=== PATIENT | female | born 1935 | race Caucasian/White ===

== ENCOUNTER 2016-12-18 14:47 | Inpatient (IN) | payer MEDICARE, OTHER ==
[~2016-12-18] VITALS: Ht 165.1 cm; Wt 86.2 kg
[2017-02-05] VITALS (11 sets, daily range): BP systolic 99–151; BP diastolic 48–97; PULSE 58–83; TEMP 98–98.8
[2017-02-06 00:18] VITALS: BP 126/70; PULSE 78; TEMP 98.2
[2017-02-06 03:48] VITALS: BP 130/66; PULSE 74; TEMP 98.2
[2017-02-06 06:50] LABS: HEMATOCRIT 36.4 % (37.0-47.0)
[2017-02-06 07:36] VITALS: BP 131/69; PULSE 71; TEMP 98.4
[2017-02-06 11:22] VITALS: BP 107/67; PULSE 73; TEMP 98.4
[2017-02-06 15:51] VITALS: BP 127/59; PULSE 73; TEMP 98
[2017-02-06 20:26] VITALS: BP 105/63; PULSE 78; TEMP 98.8
[2017-02-07 00:13] VITALS: BP 152/65; PULSE 77; TEMP 98.7
[2017-02-07 04:12] VITALS: BP 125/57; PULSE 76; TEMP 98.5
[2017-02-07 08:17] VITALS: BP 139/58; PULSE 73; TEMP 98
[2017-02-07 08:22] LABS: HEMATOCRIT 36.9 % (37.0-47.0); HEMOGLOBIN 11.9 g/dl (12.5-16.0)
[2017-02-07] MEDS ORDERED: ASPIRIN 32325 MG/TA1 PO (14:13)
[2017-02-07] MEDS ORDERED: NORCO 325 MG-7.1 TAB PO (14:13)
[2017-02-07] MEDS ORDERED: OXY IR5 MG PO (14:15)
== END 2017-02-07 14:40 | disposition home or self-care (01) | DRG 470 ==
LOC: JCC 02-05 06:24
PROVIDERS: Orthopaedic Surgery
PROC: 0SR90JA Replacement of Right Hip Joint with Synthetic Substitute, Uncemented, Open Approach (ICD-10-PCS; principal; 2017-02-05 11:30)
DX: M16.11 Unilateral primary osteoarthritis, right hip (principal)
CPT/HCPCS: A4315; A9284; C1713; C1776; J0690; J1100; J2250; J2370; J2405; J2704; J3010; J7120

== ENCOUNTER → 2017-01-29 | Outpatient (CLI) | payer MEDICARE, OTHER ==
[2017-01-29 16:24] LABS: HIV 1/2 Antibodies Non-Reactive; HIV-1p24 Antigen Non-Reactive
== END ==
LOC: COL.LAB 14:53
PROVIDERS: Orthopaedic Surgery
DX: Z01.812 Encounter for preprocedural laboratory examination (principal)

== ENCOUNTER → 2017-07-10 | Outpatient (CLI) | payer MEDICARE, OTHER ==
[~2017-07-10] MED LIST: ASPIRIN 32325 MG/TA1 PO; NORCO 325 MG-7.1 TAB PO; OXY IR5 MG PO
== END ==
LOC: COL.RAD 12:03
DX: M25.512 Pain in left shoulder (principal)
CPT/HCPCS: J3301; Q9967

== ENCOUNTER 2019-09-16 16:18 | Inpatient (IN) | payer MEDICARE, OTHER ==
[~2019-09-16] VITALS: Ht 162.7 cm; Wt 72.2 kg
[2019-11-08] VITALS (8 sets, daily range): BP systolic 110–128; BP diastolic 55–66; PULSE 56–82; TEMP 97.6–98.3
[2019-11-08] MEDS ORDERED: RT ADVAIR 528 DISKUS IH (09:53)
[2019-11-08] MEDS ORDERED: HYGROTON 2525 MG/TAB PO (09:53)
[2019-11-08] MEDS ORDERED: BENICAR 20MG TA20 MG PO (09:53)
[2019-11-08] MEDS ORDERED: OMEGA-3 FISH1000 MG PO (09:54)
[2019-11-08] MEDS ORDERED: MOBIC15 MG PO (09:54)
[2019-11-08] MEDS ORDERED: CRESTOR5 MG PO (09:55)
[2019-11-08] MEDS ORDERED: NIASPAN750 MG PO (09:55)
[2019-11-08] MEDS ORDERED: FOLIC ACID0.4 MG PO (09:56)
[2019-11-08] MEDS ORDERED: PROLIA60 MG/ML SQ (09:56)
[2019-11-08] MEDS ORDERED: VISION VITAMINS1 TA1 PO (09:57)
--- NOTE | 2019-11-08 15:00 | NUR ---
PATIENT ADMITED INTO ROOM 330 POST OP. ORIENTED BUT SL DROWSY. VSS. DENIES PAIN IN LLE. UNABLE TO MOVE BLE AT THIS TIME. LTK DRESSING IS CD&I WITH BULKY ACEWRAP. TEDS TO RLE. SCD'S TO BLE. POSITIVE PEDAL PULSES TO BLE. PATIENT DENIES NEED TO VOID AT THIS TIME. NO C/O N/V. IV FLUIDS INFUSING VIA PUMP INTO LEFT FORARM IV. LIQUIDS AT BEDSIDE. HEAD TO TOE ASSESSMENT WNL. ORIENTED TO ROOM. CALL LIGHT IN REACH.
[2019-11-09] VITALS (7 sets, daily range): BP systolic 100–123; BP diastolic 43–68; PULSE 60–77; TEMP 97.5–99
--- NOTE | 2019-11-09 01:49 | NUR ---
Patient has rested well throughout the night. SBA required for ambulation to the restroom. Patient utilizes walker and gait is steady. Bulky dressing to left knee is clean, dry, and intact. Patient has had good urine output. States pain is well controlled. IVF infusing through left forearm. Asks questions frequently. All questions answered to patient's satisfaction. Patient states all sensation back in the left leg. Denies any further needs. Will continue to monitor.
[2019-11-09 07:25] LABS: HEMOGLOBIN 11.3 g/dl (12.5-16.0)
--- NOTE | 2019-11-09 09:23 | NUR ---
PT SITTING UP IN BED AFTER EATING BREAKFAST. DR BENITEZ IN TO ROUND ON PATIENT THIS AM. POSSIBLE DISCHARGE LATER TODAY AFTER PM THERAPY. PT AMBULATING WITH SLOW STEADY GAIT. DRESSING TO LEFT KNEE CDI WITH OCCLUSIVE ESTELLA WRAP OVER INCISION. PAIN CONTROLLED WITH PO MEDS AT THIS TIME.
--- NOTE | 2019-11-09 10:10 | NUR ---
SW met with the patient to discuss discharge plan. The patient lives in [place] with her , Ja (ph#[phone]). She reports independence with ADLs and has a cane and walker. The patient's PCP is Dr. Hesham Guevara and she receives her medications through [facility] and [facility] mail order. She reports no difficulties obtaining her meds. The patient does not have advanced directives in EMR, but she reports that she does have them completed. She states that she designated her children: Carly Wallace (ph#[phone]) and Max Cruz as her DPOA-HC. The patient plans to return home with her and receive outpatient PT at [facility] upon discharge. She states that her daughter, Carly, plans to stay with her for two weeks, when she returns home to also help. No additional needs at this time.
--- NOTE | 2019-11-10 02:58 | NUR ---
Patient has rested well throughout the night. Requires stand-by assist for ambulation to the restroom. Utilizes walker. Gait steady. Aquacel is clean, dry, and intact. Patient states pain medication is adequate for pain management. Ice to left knee. Patient denies any further needs. Will continue to monitor.
[2019-11-10 03:39] VITALS: BP 102/55; PULSE 71; TEMP 97.8
[2019-11-10 06:30] LABS: HEMOGLOBIN 10.7 g/dl (12.5-16.0)
[2019-11-10 06:42] LABS: HEMATOCRIT 33.2 % (37.0-47.0)
[2019-11-10 07:20] VITALS: BP 123/58; PULSE 72; TEMP 97.9
--- NOTE | 2019-11-10 08:42 | NUR ---
PT UP TO [facility] FOR BREAKFAST THEN OUT TO [facility] WITH THERAPY. DR BENITEZ ROUNDED ON PT THIS AM. AMBULATING WITH SLOW STEADY GAIT. PAIN WELL CONTROLLED WITH PO MEDS. DRESSING TO LEFT KNEE CDI. ICE APPLIED PER ORDERS.
[2019-11-10] MEDS ORDERED: ASPI325T6 PO (09:37)
[2019-11-10] MEDS ORDERED: NORCO 325 MG-7.1 TAB PO (09:38)
[2019-11-10] MEDS ORDERED: SENOKOT S 50 MG1 TAB PO (09:39)
[2019-11-10] MEDS ORDERED: ULTRAM 50MG TAB50 MG PO (09:39)
[2019-11-10 12:03] VITALS: BP 113/82; PULSE 75; TEMP 97.6
--- NOTE | 2019-11-10 14:19 | NUR ---
REVIEWED DISCHARGE INSTRUCTIONS WITH PATIENT. QUESTIONS SOLICITED AND ANSWERED. PT TAKEN BY WHEEL CHAIR TO FAMILY.
== END 2019-11-10 14:20 | disposition home or self-care (01) | DRG 470 ==
LOC: JCC 11-08 08:54
PROVIDERS: ADMIT Orthopaedic Surgery
PROC: 0SRD0J9 Replacement of Left Knee Joint with Synthetic Substitute, Cemented, Open Approach (ICD-10-PCS; principal; 2019-11-08 13:30)
DX: M17.12 Unilateral primary osteoarthritis, left knee (principal)
CPT/HCPCS: C1776; J0690; J2250; J2704; J3010; J7120